=== PATIENT | female | born 1980 ===

== ENCOUNTER → 2020-09-28 12:27 | Outpatient (CLI) | payer OTHER | END | disposition home or self-care (01) | LOC: PPH VACUNA 12:27 | DX: Z23 Encounter for immunization (principal) ==

== ENCOUNTER 2020-10-20 08:00 | Outpatient (CLI) | payer OTHER | END 2020-10-20 08:30 | disposition home or self-care (01) | LOC: PPH VACUNA 08:00 | DX: Z23 Encounter for immunization (principal) ==

== ENCOUNTER 2021-03-10 07:00 | Outpatient (CLI) | payer OTHER | END 2021-03-10 07:15 | disposition home or self-care (01) | LOC: PPH VACUNA 07:00 | PROVIDERS: ATTEND Emergency Medicine Pediatric Emergency Medicine | DX: Z23 Encounter for immunization (principal) ==

== ENCOUNTER 2021-07-14 08:00 | Outpatient (CLI) | payer OTHER | END 2021-07-14 08:30 | disposition home or self-care (01) | LOC: PPH VACUNA 08:00 | PROVIDERS: ATTEND Emergency Medicine Pediatric Emergency Medicine | DX: Z23 Encounter for immunization (principal) | CPT/HCPCS: 90686; G0008 ==

== ENCOUNTER 2022-02-15 11:07 | Emergency (ER) | payer OTHER ==
[~2022-02-15] VITALS: Ht 167.6 cm; Wt 79.4 kg
== END 2022-02-15 14:36 | disposition home or self-care (01) ==
LOC: ER 11:07
DX: S52.611A Displaced fracture of right ulna styloid process, initial encounter for closed fracture (principal); S60.211A Contusion of right wrist, initial encounter; Y93.9 Activity, unspecified; W18.30XA Fall on same level, unspecified, initial encounter; Y92.39 Other specified sports and athletic area as the place of occurrence of the external cause